=== PATIENT | female | born 1995 | race Caucasian/White ===

== ENCOUNTER 2016-11-11 09:45 | Inpatient (IN) | payer OTHER ==
[~2016-11-11] VITALS: Ht 170.2 cm; Wt 52.2 kg
[2016-11-11] MEDS ORDERED: LORAZEPAM 2 MG/1 ML VIAL IM PRN (21:00)
[2016-11-11] MEDS ORDERED: ONDANSETRON ODT 4 MG TAB.RAPDIS SL PRN (21:00)
[2016-11-11] MEDS ORDERED: DICYCLOMINE HCL 20 MG TABLET PO PRN (21:00)
[2016-11-11] MEDS ORDERED: diphenhydrAMINE 50 MG CAPSULE PO PRN (21:00)
[2016-11-11] MEDS ORDERED: THIAMINE HCL 200 MG/2 ML VIAL IM ONE (21:00)
[2016-11-11] MEDS ORDERED: IBUPROFEN 400 MG TABLET PO PRN (21:00)
[2016-11-11] MEDS ORDERED: MAG HYDROX/AL HYDROX/SIMETH 30 ML LIQUID UDC PO PRN (21:00)
[2016-11-11] MEDS ORDERED: MAGNESIUM HYDROXIDE 30 ML LIQUID UDC PO PRN (21:00)
[2016-11-11] MEDS ORDERED: DIAZEPAM 5 MG TABLET PO PRN (21:00)
[2016-11-11] MEDS ORDERED: ACETAMINOPHEN 325 MG TABLET PO PRN (21:00)
[2016-11-11] MEDS ORDERED: DIAZEPAM 10 MG TABLET PO PRN ×2 (21:00)
[2016-11-11] MEDS ORDERED: ONDANSETRON 4 MG/2 ML VIAL IM PRN (21:00)
[2016-11-11] MEDS ORDERED: LOPERAMIDE HCL 2 MG CAPSULE PO PRN ×2 (21:00)
[2016-11-11] MEDS ORDERED: CLONIDINE HCL 0.1 MG TABLET PO PRN (21:00)
[2016-11-11] MEDS ORDERED: MIRALAX 17 GM POWD.PACK PO PRN (21:00)
--- NOTE | 2016-11-11 21:10 | NUR ---
ADMISSION NOTE PATIENT ADMITTED TO [facility] FOR BENZO AND ALCOHOL DETOX. PATIENT IS A 21 YEAR OLD FEMALE WITH PAST MEDICAL HISTORY OF BIPOLAR DISORDER, PANIC D/O, AND ANXIETY D/O. THIS IS PATIENTS FIRST DETOX. SHE HAS BEEN USING XANAX FOR 6 YEARS AND GOT CONSISTENTLY WORSE 6 MONTHS AGO AFTER OF HER YOUNGER BROTHER. PATIENT REPORTS USING 6-12 MG OF XANAX DAILY, AND USING ALCOHOL 1-2 SHOTS OF TEQUILA 3-4 TIMES WEEKLY. PATIENT ALSO REPORTS INTERMITTENT COCAINE USE. SHE HAS NO HISTORY OF FALLS OR SEIZURES. 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 SHE IS PRESCRIBING HER ALPRAZOLAM, LAMICTAL, AND VRAYLAR. PATIENT REPORTS MED COMPLIANCE BUT STATES THE XANAX IS NOT ENOUGH AND THEREFORE SHE BUYS "BARS" AND OVERUSES DAILY. PATIENT REPORTS SHE ALSO SEES A THERAPIST WEEKLY BUT STILL FEELS DEPRESSED AND ANXIOUS SINCE OF BROTHER AND AN THIS SUMMER. SHE HAS AN ALLERGY TO APPLES. SHE IS A FULL CODE AND ON A REGULAR DIET. SHE IS ON FALL AND SEIZURE PRECAUTIONS. SHE DENIES SI OR HI. THOUGHTS ARE CLEAR AND COHERENT. PATIENT IS AMBULATORY AD GERARDO WITH STEADY GAIT. ORIENTATION TO UNIT/FACILITY COMPLETED. BODY SEARCH CVOMPLETED. SKIN INTACT WITH NO SKIN BREAKDOWN NOTED. UPON ADMISSION CIWA 9VITAL SIGNS 110/68, P 88, R 18, SPO2 98% ON RA. REPORTS LAST MENSTRUAL PERIOD 7-17, LAST BM TODAY. SAFETY MEASURES IN PLACE BED LOCKED AND IN LOWEST POSITION. 2 SIDE RAILS UP. CALL LIGHT WITHIN REACH.
--- NOTE | 2016-11-11 21:30 | NUR ---
Pre-admission assessment Patient is a 21-year old, female, seen at intake, AAOx4, no SOB and no anxiety noted at this time. Discussed with patient admission policies of the unit. Patient is coherent and able to respond to questions appropriately. Patient reported that she is from [place]. Pt is ambulatory with steady gait. Pt reports using these substance daily: Xanax, started at age 14, pt reports taking 10-12 gm PO x 6 months, last use was 11/11/2016 at 2000 and ETOH-Vodka and Tequila, per pt she is taking "a couple of shots to about half a bottle of 750 ml" every other day on average. Vital signs taken and as follows: RV=385/66, P=58, O2 sat on RA=98%, RR=20, T=97.6. Pt verbalized instructions and teachings regarding disposal of narcotic and other controlled home meds, unit protocols such as taking of vital signs Q4H and handling and disposal of contraband.
[2016-11-11 21:48] LABS: BASOPHILS % (AUTO) 0.4 % (0.0-2.0); EOSINOPHILS # (AUTO) 0.2 K/uL (0.0-0.7); EOSINOPHILS % (AUTO) 2.4 % (0.0-7.0); HEMOGLOBIN 14.2 G/DL (12.0-16.0); LYMPHOCYTES # (AUTO) 2.8 K/UL (0.8-4.8); MEAN CORPUSCULAR HEMOGLOBIN 30.8 UUG (27.0-31.0); MEAN CORPUSCULAR HGB CONC 34 g/dL (32.0-37.0); MEAN CORPUSCULAR VOLUME 91.3 FL (81.0-99.0); MONOCYTES # (AUTO) 0.6 K/UL (0.1-1.30); MONOCYTES % (AUTO) 7.1 % (0.0-11.0); NEUTROPHILS # (AUTO) 5.3 K/UL (1.8-8.9); NEUTROPHILS % (AUTO) 59.1 % (38.5-71.5); PLATELET COUNT (AUTO) 275 K/UL (150-450); WHITE BLOOD COUNT (AUTO) 8.9 K/UL (4.0-11.2)
[2016-11-11 21:54] LABS: ALANINE AMINOTRANSFERASE 62 U/L (14-59); ALKALINE PHOSPHATASE 64 U/L (50-136); ASPARTATE AMINOTRANSFERASE 123 U/L (15-37); BILIRUBIN,TOTAL 0.4 mg/dL (0.2-1.0); CARBON DIOXIDE 28 mmol/L (21-32); CHLORIDE 101 mmol/L (98-107); CREATININE 0.9 mg/dL (0.6-1.3); ETHANOL < 3 MG/DL (0-0); GLUCOSE 103 mg/dL (74-106); MAGNESIUM 1.9 mg/dL (1.8-2.4); POTASSIUM 3.6 mmol/L (3.5-5.1); TOTAL PROTEIN, SERUM 7.1 g/dL (6.4-8.2); UREA NITROGEN, BLOOD 11 mg/dL (7-18)
[2016-11-11 22:00] VITALS: BP 110/68
[2016-11-11 22:03] LABS: THYROID STIMULATING HORMONE 2.963 mIU/mL (0.358-3.740)
[2016-11-11] MEDS ORDERED: DIAZEPAM 10 MG TABLET PO SCH (22:30)
[2016-11-11] MEDS ORDERED: CARI3CAP PO (23:10)
[2016-11-11] MEDS ORDERED: ALPR0.255 PO (23:10)
[2016-11-11] MEDS ORDERED: LAMO25TA PO (23:10)
[2016-11-11 23:36] LABS: *URINE HCG, QUAL NEGATIVE (NEGATIVE)
[2016-11-12] VITALS: BP 114/70
--- NOTE | 2016-11-12 | NUR ---
CIWA DEFERRED PATIENT ASLEEP AT 0000 CIWA DEFERRED FOR SLEEP
[2016-11-12 00:03] LABS: *AMPHETAMINE, URINE NEGATIVE (NEGATIVE); *BARBITURATE, URINE NEGATIVE (NEGATIVE); *CANNABINOID, URINE NEGATIVE (NEGATIVE); *COCCAINE, URINE NEGATIVE (NEGATIVE); *OPIATE, URINE NEGATIVE (NEGATIVE); *PHENCYCLIDINE SCREEN,URINE NEGATIVE (NEGATIVE)
[2016-11-12 04:00] VITALS: BP 91/58
--- NOTE | 2016-11-12 04:21 | NUR ---
CIWA DEFERRED 0400 CIWA DEFERRED. PATIENT ASLEEP.
--- NOTE | 2016-11-12 06:49 | NUR ---
END OF SHIFT PATIENT IS A 21 YEAR OLD FEMALE ADMITTED TO [facility] ON 11-11-16 FOR BENZO AND ALCOHOL DETOX. SHE HAS BEEN USING XANAX 6-12 MG DAILY FOR LAST 6 MONTHS WELL ALCOHOL A FEW "SHOTS" A WEEK FOR 6 MONTHS. PATIENT ADMITTED TO ALSO USING COCAINE OCCASIONALLY WITH ONLY INTERMITTENT USE. PATIENT PLACED ON FALL AND SEIZURE PRECAUTION. SHE HAS NO KNOWN SEIZURE HISTORY. THIS IS FIRST ATTEMPT AT DETOX. PAST MEDICAL HISTORY INCLUDES BIPOLAR DISORDER, PANIC DISORDER, AND ANXIETY. PATIENT DENIES SI OR HI. PATIENT IS A FULL CODE ON A REGULAR DIET WITH KNOWN ALLERGY TO APPLES. SHE IS ON A VALIUM TAPER, WITH FIRST 10 MG DOSE GIVEN AT 2234. PATIENT ALSO RECEIVED THIAMINE 100 MG IM PER MD ORDER. PATIENT CIWA UPON ADMISSION WAS 9. VITAL SIGNS 2200 BP 110/68, P 88 R 18, T 98.2, SPO2 98% ON RA. VITAL SIGNS AT 0000 BP 114/70, 80, 16, SPO2 98% ON RA, T 97.0 CIWA DEFERRED FOR SLEEP. VITAL SIGNS AT 0400 91/58, P 86, R 16, T 98.0, SPO2 96% ON RA CIWA DEFERRED FOR SLEEP. INTAKE 547 ML OUTPUT 1 VOID SLEPT TOTAL OF [address] ME[address] PL[address] 2 SIDE RAILS UP FOR SAFETY. BED LOCKED AND IN LOWEST POSITION. CALL LIGHT WITHIN REACH. REPORT GIVEN TO AM NURSE
--- NOTE | 2016-11-12 07:55 | NUR ---
START OF SHIFT NOTE Received report from night nurse, 21 year old female admitted for ETOH/benzo dependence. pt reported PMH of bipolar, Panic disorder, Anxiety, tonsillectomy, [place] teeth extraction, breast Augmentation. Pt stated on 5 days Valium taper. Per endorsement pt was not given any PRN,last CIWA was-9, slept for 7 hours. Pt received in bed awake, alert and oriented x4, Skin intact warm and dry to touch. Pt educated regarding plan of care for the day with good verbal understanding. Safety measures in place, call light kept with in reach. Will continue to monitor.
[2016-11-12 08:00] VITALS: BP 108/62
[2016-11-12] MEDS ORDERED: TUBERCULIN,PURIF.PROT.DERIV. 5 TU/0.1 ML TEST ID ONE (09:00)
[2016-11-12] MEDS: FOLIC ACID 1 MG TABLET PO SCH (09:19)
[2016-11-12] MEDS: MULTIVITAMINS,THERAPEUTIC TABLET PO SCH (09:19)
[2016-11-12] MEDS: GABAPENTIN 300 MG CAPSULE PO SCH ×2 (09:19→21:31)
[2016-11-12] MEDS: THIAMINE HCL 100 MG TABLET PO SCH (09:19)
[2016-11-12] MEDS: DIAZEPAM 10 MG TABLET PO SCH ×4 (09:19→21:31)
[2016-11-12 12:00] VITALS: BP 119/70
[2016-11-12 16:00] VITALS: BP 125/74
--- NOTE | 2016-11-12 19:27 | NUR ---
END OF SHIFT NOTE Pt cont with Valium taper tolerating well. Vital signs WNL. Pt was given PPD on her RFA. Pt did not attend any group. Pt rested in her room. Skin intact warm and dry to touch. Pt did not receive any PRN during shift. Last COWS was 6. Encourage Po fluids as tolerated. All needs attended. Pt endorsed to night nurse in stable condition. Addendum: 11/13/16 at 1859 by AUSTEN ROSA LVN ERROR IN CHARTING, NOT COWS SCORE IT IS CIWA SCORE
[2016-11-12 20:00] VITALS: BP 114/70
--- NOTE | 2016-11-12 20:00 | NUR ---
START OF SHIFT Pt is a 21 y/o female admitted on 11/11/16 for benzo and ETOH dependence. Pt was dependent on alprazolam 6-12 mg daily, ETOH 3-4 x weekly, and intermittent cocaine use. Pt is full code, regular diet, allergic to apples, and on seizure and fall precautions. No hx of seizures. Pt reports PMH of bipolar and anxiety with panic attacks. Pt started on a 5 day Valium taper on 11/12/16, tolerating well. No PRNs given during day shift. Upon assessment pt presents with moderate anxiety, headache, and mild chills. Respirations 16, even and unlabored. Denies V/D. Denies SI/HI. Denies chest pain or SOB. Medications due. Safety measures in place. Call light within reach. Will continue to monitor.
[2016-11-13] VITALS: BP 109/76
--- NOTE | 2016-11-13 | NUR ---
VITAL SIGNS BP 109/76, T 98.6, P 98, 02 98%, R 16, PA 010 CIWA deferred, pt is laying in bed with eyes closed. Respirations even and unlabored. Safety measures in place. Call light within reach.
[2016-11-13 04:00] VITALS: BP 86/38
--- NOTE | 2016-11-13 04:00 | NUR ---
VITAL SIGNS BP 86/38, T 98.2, P 83, 02 100%, R 18, PA 0/10 CIWA deferred, pt is laying in bed with eyes closed. Respirations even and unlabored. Safety measures in place. Call light within reach.
--- NOTE | 2016-11-13 06:21 | NUR ---
PRN VISTARIL Vistaril 50 mg administered for anxiety. Pt is tearful, has moderate anxiety, and reports racing thoughts. Respirations 18, even and unlabored. Safety measures in place. Call light within reach. Will continue to monitor.
[2016-11-13] MEDS ORDERED: HYDROXYZINE PAMOATE 25 MG CAPSULE PO PRN ×2 (06:30→13:45)
[2016-11-13] MEDS ORDERED: HYDROXYZINE PAMOATE 25 MG CAPSULE ONE (06:32)
--- NOTE | 2016-11-13 07:19 | NUR ---
END OF SHIFT Pt is a 21 y/o female admitted on 11/11/16 for benzo and ETOH dependence. Pt was dependent on alprazolam 6-12 mg daily, ETOH 3-4 x weekly, and intermittent cocaine use. Pt is full code, regular diet, allergic to apples, and on seizure and fall precautions. No hx of seizures. Pt reports PMH of bipolar and anxiety with panic attacks. Pt started on a 5 day Valium taper on 11/12/16, tolerating well. Pt presented with moderate anxiety, headache, and mild chills. Scheduled medications and PRN Vistaril administered, effective in S/S of withdrawal as verbalized by pt. Last CIWA 4. Slept 7 hours, intake 775 ml, void x 2, stool x 0. Respirations 16, even and unlabored. Denies N/V/D. Denies SI/HI. Denies chest pain or SOB. Safety measures in place. Call light within reach. Endorsed to day shift nurse.
--- NOTE | 2016-11-13 07:21 | NUR ---
VISTARIL REASSESSMENT Pt is laying in bed watching TV. Pt reports improvement in anxiety. Pt is no longer tearful or having racing thoughts. Safety measures in place. Call light within reach.
--- NOTE | 2016-11-13 07:54 | NUR ---
START OF SHIFT NOTE Received report from night nurse, 21 year old female admitted for ETOH/benzo dependence. pt reported PMH of bipolar, Anxiety with Panic attack, tonsillectomy, [place] teeth extraction, breast Augmentation. Pt cont on 5 days Valium taper. Per endorsement pt received PRN Vistaril effective per night nurse, last CIWA was-4, slept for 9 hours. Pt received in bed awake, alert and oriented x4, Skin intact warm and dry to touch. Pt educated regarding plan of care for the day with good verbal understanding. Safety measures in place, call light kept with in reach. Will continue to monitor.
[2016-11-13 08:00] VITALS: BP 102/62
[2016-11-13] MEDS: FOLIC ACID 1 MG TABLET PO SCH (08:27)
[2016-11-13] MEDS: DIAZEPAM 10 MG TABLET PO SCH ×3 (08:28→21:09)
[2016-11-13] MEDS: GABAPENTIN 300 MG CAPSULE PO SCH ×2 (08:28→21:10)
[2016-11-13] MEDS: LAMOTRIGINE 25 MG TABLET PO SCH (08:28)
[2016-11-13] MEDS: MULTIVITAMINS,THERAPEUTIC TABLET PO SCH (08:28)
[2016-11-13] MEDS: THIAMINE HCL 100 MG TABLET PO SCH (08:28)
[2016-11-13] MEDS: CARIPRAZINE PO SCH (08:33)
[2016-11-13] MEDS ORDERED: HOME MED MISCELLANEOUS PO SCH (09:00)
[2016-11-13 12:00] VITALS: BP 109/70
[2016-11-13 12:07] LABS: HEPATITIS B SURFACE AG Negative (Negative)
[2016-11-13 16:00] VITALS: BP 121/75
--- NOTE | 2016-11-13 19:06 | NUR ---
END OF SHIFT NOTE Pt cont with Valium taper tolerating well. Vital signs WNL. Pt did not attend any group. Pt rested in her room. Encouraged pt to attend groups and activities and learn new coping skills, with good verbal understanding. Skin intact warm and dry to touch. Pt did not receive any PRN during shift. Last CIWA was 4. Encourage Po fluids as tolerated. All needs attended. Pt endorsed to night nurse in stable condition.
[2016-11-13 20:00] VITALS: BP 106/59
--- NOTE | 2016-11-13 20:00 | NUR ---
START OF SHIFT Pt is a 21 y/o female admitted on 11/11/16 for benzo and ETOH dependence. Pt was dependent on alprazolam 6-12 mg daily, ETOH 3-4 x weekly, and intermittent cocaine use. Pt is full code, regular diet, allergic to apples, and on seizure and fall precautions. No hx of seizures. Pt reports PMH of bipolar and anxiety with panic attacks. Pt started on a 5 day Valium taper on 11/12/16, tolerating well. Upon assessment pt presents with moderate anxiety, mild sweats, flushed skin, and fatigue. Respirations 16, even and unlabored. Denies N/V/D. Denies SI/HI. Denies chest pain or SOB. Medications due. Safety measures in place. Call light within reach. Will continue to monitor.
[2016-11-14] VITALS: BP 95/57
--- NOTE | 2016-11-14 | NUR ---
VITAL SIGNS BP 95/57, P 77, R 16, 02 99%, 7 97.5, PA 0/10 CIWA deferred. Pt is laying in bed with eyes closed, to be assessed when pt is awake per orders. Respirations even and unlabored. Safety measures in place. Call light within reach. Will continue to monitor.
[2016-11-14 04:00] VITALS: BP 97/58
--- NOTE | 2016-11-14 04:00 | NUR ---
VITAL SIGNS BP 97/58, P 75, R 16, 02 99%, T 98.1, PA 0/10 CIWA deferred. Pt is laying in bed with eyes closed, to be assessed when pt is awake per orders. Respirations even and unlabored. Safety measures in place. Call light within reach. Will continue to monitor.
--- NOTE | 2016-11-14 07:11 | NUR ---
END OF SHIFT Pt is a 21 y/o female admitted on 11/11/16 for benzo and ETOH dependence. Pt was dependent on alprazolam 6-12 mg daily, ETOH 3-4 x weekly, and intermittent cocaine use. Pt is full code, regular diet, allergic to apples, and on seizure and fall precautions. No hx of seizures. Pt reports PMH of bipolar and anxiety with panic attacks. Pt started on a 5 day Valium taper on 11/12/16, tolerating well. Pt presented with moderate anxiety, mild sweats, flushed skin, and fatigue. Scheduled medications administered, effective in S/S of withdrawal as verbalized by pt. Last CIWA 4. Slept 10 hours, intake 700 ml, void x 1, stool x 0. Respirations 16, even and unlabored. Denies N/V/D. Denies SI/HI. Denies chest pain or SOB. Safety measures in place. Call light within reach. Endorsed to day shift nurse.
--- NOTE | 2016-11-14 07:48 | NUR ---
START OF SHIFT NOTE Received report from night nurse, 21 year old female admitted for ETOH/benzo dependence. pt reported PMH of bipolar, Anxiety with Panic attack, tonsillectomy, [place] teeth extraction, breast Augmentation. Pt cont on 5 days Valium taper. Per endorsement pt were not given any PRN, last CIWA was-4, slept for 10 hours. Pt received in bed awake, alert and oriented x4, Skin intact warm and dry to touch. Pt educated regarding plan of care for the day with good verbal understanding. Safety measures in place, call light kept with in reach. Will continue to monitor.
[2016-11-14 08:00] VITALS: BP 120/60
[2016-11-14] MEDS: LAMOTRIGINE 25 MG TABLET PO SCH (08:11)
[2016-11-14] MEDS: THIAMINE HCL 100 MG TABLET PO SCH (08:11)
[2016-11-14] MEDS: GABAPENTIN 300 MG CAPSULE PO SCH ×3 (08:11→21:10)
[2016-11-14] MEDS: FOLIC ACID 1 MG TABLET PO SCH (08:11)
[2016-11-14] MEDS: DIAZEPAM 5 MG TABLET PO SCH ×3 (08:11→21:10)
[2016-11-14] MEDS: MULTIVITAMINS,THERAPEUTIC TABLET PO SCH (08:11)
[2016-11-14] MEDS: CARIPRAZINE PO SCH (08:15)
[2016-11-14] MEDS ORDERED: DIAZEPAM 5 MG TABLET PO SCH (09:00)
--- NOTE | 2016-11-14 09:48 | NUR ---
BEE STING Patient was stung by a bee while standing outside, no redness/swelling or pain noted to area, offered pain medication, patient refused offered x3 risk and benefits explained. Patient strongly refused. MD notified. Will cont to monitor.
[2016-11-14 12:00] VITALS: BP 102/55
[2016-11-14 16:00] VITALS: BP 118/76
[2016-11-14 20:00] VITALS: BP 96/52
--- NOTE | 2016-11-14 20:00 | NUR ---
START OF SHIFT Pt is a 21 y/o female admitted on 11/11/16 for benzo and ETOH dependence. Pt was dependent on alprazolam 6-12 mg daily, ETOH 3-4 x weekly, and intermittent cocaine use. Pt is full code, regular diet, allergic to apples, and on seizure and fall precautions. No hx of seizures. Pt reports PMH of bipolar and anxiety with panic attacks. Pt started on a 5 day Valium taper on 11/12/16, tolerating well. Upon assessment pt presents with anxiety, sweats, flushed skin, depressed affect, and fatigue. Respirations 16, even and unlabored. Denies N/V/D. Denies SI/HI. Denies chest pain or SOB. Medications due. Safety measures in place. Call light within reach. Will continue to monitor.
[2016-11-15] VITALS: BP 108/59
--- NOTE | 2016-11-15 | NUR ---
CIWA DEFERRED VITAL SIGNS Pt laying in bed with eyes closed, to be assessed when pt is fully awake per orders. Respirations 16, even and unlabored. Safety measures in place. Call light within reach. Will continue to monitor.
[2016-11-15 04:00] VITALS: BP 88/48
--- NOTE | 2016-11-15 04:00 | NUR ---
CIWA DEFERRED Pt laying in bed with eyes closed, to be assessed when pt is fully awake per orders. Respirations 16, even and unlabored. Safety measures in place. Call light within reach. Will continue to monitor.
[2016-11-15 07:00] LABS: ALANINE AMINOTRANSFERASE 51 U/L (14-59); ALKALINE PHOSPHATASE 63 U/L (50-136); ASPARTATE AMINOTRANSFERASE 56 U/L (15-37); BILIRUBIN,DIRECT < 0.1 mg/dL (0.0-0.2); BILIRUBIN,TOTAL 0.2 mg/dL (0.2-1.0); CARBON DIOXIDE 28 mmol/L (21-32); CHLORIDE 105 mmol/L (98-107); CREATININE 1.1 mg/dL (0.6-1.3); GLUCOSE 99 mg/dL (74-106); MAGNESIUM 1.9 mg/dL (1.8-2.4); POTASSIUM 4.3 mmol/L (3.5-5.1); TOTAL PROTEIN, SERUM 6.7 g/dL (6.4-8.2); UREA NITROGEN, BLOOD 14 mg/dL (7-18)
--- NOTE | 2016-11-15 07:25 | NUR ---
END OF SHIFT Pt is a 21 y/o female admitted on 11/11/16 for benzo and ETOH dependence. Pt was dependent on alprazolam 6-12 mg daily, ETOH 3-4 x weekly, and intermittent cocaine use. Pt is full code, regular diet, allergic to apples, and on seizure and fall precautions. No hx of seizures. Pt reports PMH of bipolar and anxiety with panic attacks. Pt started on a 5 day Valium taper on 11/12/16, tolerating well. Pt presented with anxiety, sweats, flushed skin, depressed affect, and fatigue. Scheduled medications administered, effective in S/S of withdrawal as verbalized by pt. Last CIWA 4. Slept 8 hours, intake 1150 ml, void x 2, stool x 0. Respirations 16, even and unlabored. Denies N/V/D. Denies SI/HI. Denies chest pain or SOB. Safety measures in place. Call light within reach. Endorsed to day shift nurse.
[2016-11-15 08:00] VITALS: BP 118/64
--- NOTE | 2016-11-15 08:05 | NUR ---
START OF SHIFT: RECEIVED PT A/O X 4. SHE PRESENTS WITH ANXIOUS MOOD AND CONGRUENT AFFECT. TREMORS FELT BUT NOT OBSERVED. SHE STATES SHE IS FEELING SOME MILD ANXIETY BUT FEELS BETTER EACH DAY. SHE STATES VALIUM IS EFFECTIVE IN REDUCING S/S OF W/D. CIWA 2. PT STATES SHE WILL SHOWER AND ATTEND GROUPS TODAY. ENCOURAGED INCREASED FLUIDS TO ASSIST IN FACILITATING DETOX PROCESS. WILL CONTINUE TO MONITOR AND OFFER SUPPORT.
[2016-11-15] MEDS: GABAPENTIN 300 MG CAPSULE PO SCH ×2 (08:45→14:41)
[2016-11-15] MEDS: MULTIVITAMINS,THERAPEUTIC TABLET PO SCH (08:45)
[2016-11-15] MEDS: DIAZEPAM 5 MG TABLET PO SCH ×2 (08:46→21:41)
[2016-11-15] MEDS: FOLIC ACID 1 MG TABLET PO SCH (08:46)
[2016-11-15] MEDS: LAMOTRIGINE 25 MG TABLET PO SCH (08:46)
[2016-11-15] MEDS: CARIPRAZINE PO SCH (08:48)
[2016-11-15] MEDS: THIAMINE HCL 100 MG TABLET PO SCH (08:49)
[2016-11-15] MEDS ORDERED: DIAZEPAM 5 MG TABLET PO SCH (09:00)
[2016-11-15 12:00] VITALS: BP 100/67
[2016-11-15 16:00] VITALS: BP 115/65
--- NOTE | 2016-11-15 18:42 | NUR ---
END OF SHIFT: PT CONTINUES ON VALIUM TAPER. LAST CIWA 3. PT ATTENDED SOME GROUPS TODAY. SHE REPORTED SOME ANXIETY AND STATES THE DETOX MEDS ARE EFFECTIVE. NO PRNS GIVEN. PT WAS COMPLIANT WITH INCREASED FLUIDS. WILL PASS SHIFT REPORT TO ONCOMING NIGHT NURSE.
--- NOTE | 2016-11-15 19:30 | NUR ---
START OF SHIFT Pt is a 21 y/o female admitted on 11/11/16 for benzo and ETOH dependence. Pt was dependent on alprazolam 6-12 mg daily, ETOH 3-4 x weekly, and intermittent cocaine use. Pt is full code, regular diet, allergic to apples, and on seizure and fall precautions. No reported hx of seizures. Pt reports PMH of bipolar and anxiety with panic attacks. Pt started on a 5 day Valium taper on 11/12/16, tolerating well. Upon assessment, pt laying in bed and presents with anxiety, depressed affect, fatigue, flushed skin. Respirations 16, even and unlabored. Denies N/V/D. Denies SI/HI. Denies chest pain or SOB. Medications due. Safety measures in place. Call light within reach. Will continue to monitor.
[2016-11-15 20:00] VITALS: BP 115/61
[2016-11-15] MEDS ORDERED: GABAPENTIN 300 MG CAPSULE PO SCH (21:00)
--- NOTE | 2016-11-16 | NUR ---
VITAL SIGNS/CIWA DEFERRED Pt refused vital signs. Pt is laying in bed with eyes closed, CIWA deferred and to be assessed when pt is fully awake per orders. Respirations 16, even and unlabored. Safety measures in place. Call light within reach. Will continue to monitor.
--- NOTE | 2016-11-16 04:00 | NUR ---
VITAL SIGNS REFUSED AND CIWA DEFERRED Pt refused vitals, pt is laying in bed with eyes closed, CIWA deferred, to be assessed when pt is fully awake per orders. Respirations 16, even and unlabored. Safety measures in place. Call light within reach. Will continue to monitor.
--- NOTE | 2016-11-16 07:17 | NUR ---
END OF SHIFT Pt is a 21 y/o female admitted on 11/11/16 for benzo and ETOH dependence. Pt was dependent on alprazolam 6-12 mg daily, ETOH 3-4 x weekly, and intermittent cocaine use. Pt is full code, regular diet, allergic to apples, and on seizure and fall precautions. No reported hx of seizures. Pt reports PMH of bipolar and anxiety with panic attacks. Pt started on a 5 day Valium taper on 11/12/16, tolerating well. Pt presented with anxiety, depressed affect, fatigue, flushed skin. Scheduled medications administered, effective in S/S of withdrawal as verbalized by pt. Last CIWA 3. Slept 10 hours, intake 296 ml, void x 1, stool x 0. Respirations 16, even and unlabored. Denies N/V/D. Denies SI/HI. Denies chest pain or SOB. Safety measures in place. Call light within reach. Endorsed to day shift nurse.
[2016-11-16 08:00] VITALS: BP 125/77
[2016-11-16] MEDS: GABAPENTIN 300 MG CAPSULE PO SCH ×3 (08:33→20:16)
[2016-11-16] MEDS: FOLIC ACID 1 MG TABLET PO SCH (08:33)
--- NOTE | 2016-11-16 08:33 | NUR ---
PRN VISTARIL Patient complains of anxiety, prn vistaril given. Will continue to monitor patient.
[2016-11-16] MEDS: LAMOTRIGINE 25 MG TABLET PO SCH (08:35)
[2016-11-16] MEDS: CARIPRAZINE PO SCH (08:36)
[2016-11-16] MEDS: MULTIVITAMINS,THERAPEUTIC TABLET PO SCH (08:36)
[2016-11-16] MEDS: THIAMINE HCL 100 MG TABLET PO SCH (08:36)
[2016-11-16] MEDS ORDERED: DIAZEPAM 5 MG TABLET PO SCH ×2 (09:00)
--- NOTE | 2016-11-16 09:00 | NUR ---
START OF SHIFT Received report from machinist 2nd shift nurse. Patient is 21 year old female admitted for medically supervised withdrawal from alcohol. Patient is full code with allergy to apples. Patient is alert and oriented X4. On assessment this AM: CIWA:2. Denies SOB, chest pain. Vitals signs WNL. Reports anxiety. Denies sweating, body ache/headache, nausea, vomiting, stomach cramping, tremors, tactile disturbance, auditory/visual hallucinations. Med compliant with AM meds. PRN vistaril given for anxiety. Tolerating breakfast without n/v at this time. Patient reports increased yellowish and smelly vaginal discharge for the past few days, denies any skin irritation or redness on the area, MD made aware. Patient was encouraged to attend group meetings today. Will continue to monitor patient.
--- NOTE | 2016-11-16 09:33 | NUR ---
REASSESSMENT PRN VISTARIL Patient reports anxiety resolved. PRN effective
[2016-11-16 12:00] VITALS: BP 97/49
[2016-11-16] MEDS ORDERED: PENICILLIN G BENZATHINE 2.4 MMU/4 ML DISP.SYRIN IM ONE (13:00)
[2016-11-16 16:00] VITALS: BP 115/68
[2016-11-16] MEDS ORDERED: IBUP-1953 PO (18:05)
[2016-11-16] MEDS ORDERED: DIPH50CA37 PO (18:05)
[2016-11-16] MEDS ORDERED: GABA-534 PO (18:05)
[2016-11-16] MEDS ORDERED: HYDR-3895 PO (18:05)
--- NOTE | 2016-11-16 19:04 | NUR ---
END OF SHIFT Patient is 21 year old female admitted for medically supervised withdrawal from alcohol. Patient is full code with allergy to apples. Patient is alert and oriented X4. Most recent CIWA: 1. Completed 5-day Valium taper. Patient reports mild anxiety. PRN Vistaril given this shift, effective. Patient attended groups. Compliant with routine meds during this shift. Penicillin IM injection given. Patient tolerating meals without n/v. Pending discharge tomorrow. heating unit installershift production supervisor will continue to monitor patient.
--- NOTE | 2016-11-16 19:10 | NUR ---
PPD skin test read Patient's PPD skin test read today. Noted 10mm redness, notified. Xray done as ordered.
--- NOTE | 2016-11-16 19:15 | NUR ---
START OF SHIFT Received 21 year old female patient admitted on 11/11/16 for ETOH, Xanax, and Cocaine dependency. Pt is full code with allergy to apples. Pt reports a PMHx of bipolar, panic disorder, anxiety, tonsillectomy, wisdom teeth extraction, and breast augmentation. Pt reports using Alprazolam 6-12 mg daily for 6 months. Last dose was 6 mg on 11/11/16. ETOH 3-4x/week daily for 6 months. Last dose was 1-2 shots of Tequila. And Cocaine intermittently. Pt completed her 5 day valium taper and is scheduled to be DC tomorrow 11/17/16. Pt received CXR. She had a positive RPR and received the Bicillin A injection to the right buttock. Pt is alert and oriented x4, breathing is even and unlabored. Safety measures in place. Will monitor.
[2016-11-16 20:00] VITALS: BP 132/69
--- NOTE | 2016-11-16 20:16 | NUR ---
PRN BENADRYL/MOTRIN Pt reports inability to sleep and pain 4/10 at right buttock related to Bacillin injection. PRN Benadryl and Motrin administered as ordered. Safety measures in place. Will monitor effectiveness.
--- NOTE | 2016-11-16 21:16 | NUR ---
PRN REASSESSMENT PRN medication effective. Pt is lying in bed with eyes closed noted to be asleep. no facial grimacing noted. Safety measures in place. Will continue to monitor.
--- NOTE | 2016-11-17 | NUR ---
VITALS REFUSED, CIWA DEFERRED 0000 vitals refused. Pt did not want to be woken up. Risks/benefits explained. Pt still refused. CIWA deferred d/t pt lying in bed with eyes closed noted to be asleep. Breathing even and unlabored. Safety measures in place. Will monitor.
--- NOTE | 2016-11-17 04:00 | NUR ---
VITALS REFUSED, CIWA DEFERRED 0400 vitals refused. CIWA deferred d/t pt lying in bed with eyes closed noted to be asleep. Breathing even and unlabored. Safety measures in place. Will monitor.
--- NOTE | 2016-11-17 06:56 | NUR ---
END OF SHIFT Pt is a 21 year old female patient admitted on 11/11/16 for ETOH, Xanax, and Cocaine dependency. Pt is full code with allergy to apples. Pt reports a PMHx of bipolar, panic disorder, anxiety, tonsillectomy, wisdom teeth extraction, and breast augmentation. She is scheduled to be DC today 11/17/16 to [facility]. At 2016 she received PRN Benadryl and Motrin. She slept a total of 7 hrs, Intake: 1740mL, void: x3, BM:0, CIWA:1. She remains alert and oriented x4, breathing is even and unlabored. Safety measures in place. Endorsed to oncoming shift.
--- NOTE | 2016-11-17 07:30 | NUR ---
Start of shift note; Received report from night nurse. Patient is a 21 year old female admitted on 11/11/16 for Benzo, ETOH dependence. Patient completed a 5 day Valium taper without any adverse reactions. Patient slept for 7 hours. Last CIWA score was 1 at 0400. Patient is medically cleared for discharge today. All safety measures secured. Will continue to monitor patient.
[2016-11-17 08:00] VITALS: BP 112/74
[2016-11-17] MEDS: GABAPENTIN 300 MG CAPSULE PO SCH (08:31)
[2016-11-17] MEDS: MULTIVITAMINS,THERAPEUTIC TABLET PO SCH (08:31)
[2016-11-17] MEDS: THIAMINE HCL 100 MG TABLET PO SCH (08:31)
[2016-11-17] MEDS: LAMOTRIGINE 25 MG TABLET PO SCH (08:31)
[2016-11-17] MEDS: FOLIC ACID 1 MG TABLET PO SCH (08:31)
[2016-11-17] MEDS: CARIPRAZINE PO SCH (08:37)
--- NOTE | 2016-11-17 09:45 | NUR ---
Discharge note; Patient is AOX4. All valuables, belongings and prescriptions given to patient. Patient completed taper without any adverse reactions. Patient left the hospital at exactly 0945 at 11/17/16. Met all needs.
== END 2016-11-17 09:45 | disposition other institution (70) | DRG 895 ==
LOC: SRC 20:12
PROVIDERS: ADMIT Internal Medicine; ATTEND Internal Medicine
PROC: HZ2ZZZZ Detoxification Services for Substance Abuse Treatment (ICD-10-PCS; principal; 2016-11-11)
PROC: HZ41ZZZ Group Counseling for Substance Abuse Treatment, Behavioral (ICD-10-PCS; 2016-11-12)
DX: F13.232 Sedative, hypnotic or anxiolytic dependence with withdrawal with perceptual disturbance (principal); A53.0 Latent syphilis, unspecified as early or late; F31.60 Bipolar disorder, current episode mixed, unspecified; F41.0 Panic disorder [episodic paroxysmal anxiety]; Z91.89 Other specified personal risk factors, not elsewhere classified; Z81.8 Family history of other mental and behavioral disorders; Z81.1 Family history of alcohol abuse and dependence; R76.11 Nonspecific reaction to tuberculin skin test without active tuberculosis; F90.9 Attention-deficit hyperactivity disorder, unspecified type; F10.10 Alcohol abuse, uncomplicated; Y90.9 Presence of alcohol in blood, level not specified; F14.10 Cocaine abuse, uncomplicated; R74.0 Nonspecific elevation of levels of transaminase and lactic acid dehydrogenase [LDH]; F17.200 Nicotine dependence, unspecified, uncomplicated
CPT/HCPCS: 36415; 70030-TC; 71010; 80307; 80346; 83735; 84443; 84703; 85025; 86580; 86592; 86705; 86780; 86803; 87340; 87806; G0480; J3411; Q0163